=== PATIENT | male | born 1970 | race Caucasian/White ===

== ENCOUNTER 2022-09-26 10:52 | Inpatient (IN) | payer MEDICAID, SELFPAY ==
[2022-09-26 10:53] VITALS: BP 157/108; PULSE 106; RESP 16; TEMP 36.6; O2SAT 93; BMI 33.7
--- NOTE | 2022-09-26 11:34 | EX.ED.SAOD ---
HPI History of Present Illness Chief Complaint: Substance Abuse Detail of Chief Complaint: Alcoholism requesting detox. Informant: patient and parent Onset/Context/Timing Onset: - (History of alcohol abuse for years.) Context: Gradual Onset Timing: Continuous Current Severity: Moderate Maximum Severity: Moderate Associated Symptoms Associated Symptoms: Positive for vomiting* Narrative Narrative: [id number] male long-term history of alcohol and drug abuse. Denies any IV drugs. History of hypertension and PTSD. [facility] [place]. He relapsed. He drinks heavily daily. He drank several hours ago. He and his father are here requesting detox. He denies any complaints. Prior similar symptoms: Yes Recent Illness/Hospitalization: Yes PFSH PFS Home Medications bupropion HCl 75 mg tablet 75 mg PO DAILY 09/26/22 [History Last Taken Unknown] enalapril maleate 20 mg tablet 20 mg PO DAILY 09/26/22 [History Last Taken Unknown] prazosin 2 mg capsule 2 mg PO QHS 09/26/22 [History Last Taken Unknown] Allergy/AdvReac Type Severity Reaction Status Date / Time Penicillins Allergy Hives Verified 09/26/22 10:55 prochlorperazine AdvReac Other Verified 09/26/22 10:55 [From Compazine] Social History Smoking Status: Current every day smoker tobacco type: cigarettes ROS ROS ED ROS Narrative Nausea and vomiting. Review of Systems ROS Unobtainable: Denies due to encephalopathy Constitutional Constitutional ED: Denies chills or fever(s) Eyes Eyes: Denies blurry vision ENT ENT ED: Denies ear pain Cardiovascular Cardiovascular: Denies chest pain Respiratory/Chest Respiratory/Chest: Denies cough or dyspnea Gastrointestinal Gastrointestinal: Reports nausea and vomiting; Denies abdominal pain Genitourinary Genitourinary ED: Denies dysuria Musculoskeletal Musculoskeletal: Denies arthralgias Integumentary Denies abscess Neurologic Neurologic: Denies headache(s) Psychiatric Psychiatric: Reports anxiety; Denies depression Endocrine Endocrinology: Denies cold intolerance Hematologic/Lymphatic Hematologic/Lymphatic: Denies easy bleeding Allergic/Immunologic Allergic/Immunologic ED: Denies mouth swelling EXAM Physical Exam Narrative Exam Narrative: 51-year-old male vital signs stable afebrile. Does not look septic or toxic. He may be intoxicated. Father present in the room. H EENT exam unremarkable. Lungs clear. Heart regular rhythm no murmur rate about 105. Chest wall nontender. Abdomen soft nontender. Obese. Moving all 4 extremities. Calves are nontender without edema. Neurologically he is awake. He is alert. He answers questions and follows commands. Const Vital Signs: 09/26/22 10:53 Temperature 97.9 F Temperature Source Temporal Pulse Rate 106 H Respiratory Rate 16 Blood Pressure 157/108 H Blood Pressure Mean 124 Pulse Ox 93 Oxygen Delivery Method Room Air Positive well nourished, well developed and obese; Negative for cachectic, contractures or unkempt General Appearance ED: well developed and NAD; Negative for unkempt, cachectic, contractures or pallor Nutritional Appearance: obese; Negative for cachectic HEENT Reports moist mucous membranes; Denies dry mucous membranes atraumatic; Negative for trauma or tenderness Mouth ED: No dry mucous membranes Mouth: No dry mucous membranes Eyes PERRL and EOMs intact bilaterally General Eye ED: Negative for pale conjunctiva or scleral icterus Neck no lymphadenopathy, supple and no JVD Thyroid: Negative for tender Lymph Lymphatic: no lymphadenopathy noted; Negative for lymphadenopathy Chest Wall inspection of chest normal and palpation of chest normal Resp normal respiratory effort and clear to auscultation bilaterally Effort and Inspection: Negative for retractions Auscultation: Negative for rales, rhonchi or wheezes Cardio regular rhythm, S1 normal heart sound, S2 normal heart sound and no murmurs; Negative for regular rate Rate: tachycardic GI soft to palpation, non-tender, non-distended and no masses Inspection: Negative for abdominal distention Palpation: Negative for tender or guarding Back/Spine no CVA tenderness General Back: Negative for CVA tenderness Cervical Spine: Negative for cervical spine tenderness Thoracic Spine / Upper Back: Negative for thoracic spinal tenderness Lumbar Spine / Lower Back: Negative for lumbar spinal tenderness Coccyx: Negative for swelling Extremity General Extremety ED: Negative for edema or tenderness General Extremity: Negative for edema Neuro oriented x3 Neuro Narrative: Intoxicated. Sensorium / Orientation: alert, oriented to person, oriented to place and oriented to time; Negative for confused Speech: speech normal Motor Exam: strength 5/5 throughout Psych mental status grossly normal and thought process normal Appearance: Negative for unkempt Attitude: No belligerent, No agitated, No aggressive and No hostile Skin General Skin Exam: Negative for jaundice or pallor Lesions: no lesions Rashes: no rashes Trauma: Negative for abrasion or laceration MDM MDM MDM Narrative Medical decision making narrative: 51-year-old male history of alcohol and drug abuse. Requesting detox. Screening labs will be obtained. I will speak to the hospitalist about admission. Repeat exam unchanged at 1 PM. Hospitalist on page for admission. History & Record Review Discussion w/independent historian: Patient and Family Lab Data Attestation: I reviewed the patient's lab results. Lab results narrative: CBC shows a white count 10.7. H&H is 16 and 46. Platelets 222. Chemistries unremarkable gap of 8. BUN of 20 creatinine 0.9. Liver enzymes unremarkable. Glucose 154. Alcohol level was elevated at 280. Labs: Laboratory Results - last 24 hr 09/26/22 09/26/22 11:55 11:55 WBC 10.7 RBC 5.07 Hgb 16.4 Hct 46.3 MCV 91.3 MCH 32.3 H MCHC 35.4 RDW Std Deviation 42.0 RDW Coeff of Renetta 12.8 Plt Count 222 MPV 10.1 Sodium 137 Potassium 3.7 Chloride 104 Carbon Dioxide 25.0 Anion Gap 8 BUN 20 H Creatinine 0.97 Estim Creat Clear Calc 108.89 Est GFR (MDRD) Af Amer 105 Est GFR (MDRD) Non-Af 87 BUN/Creatinine Ratio 20.6 H Glucose 154 H Calcium 8.3 L Total Bilirubin 0.60 AST 31 ALT 38 Alkaline Phosphatase 64 Total Protein 7.1 Albumin 4.0 Globulin 3.1 Albumin/Globulin Ratio 1.3 Discharge Plan Dx/Rx/DC Orders Clinical Impression: Alcohol abuse, Admitted to alcohol detoxification center, History of drug abuse, Alcohol intoxication Disposition Disposition: Acute Care Hospital [facility]
[2022-09-26 12:06] LABS: Hematocrit 46.3 % (40-54); Hemoglobin 16.4 g/dL (13.0-16.5); Mean Corp Hgb Conc 35.4 g/dL (32-36); Mean Corpuscular Hgb 32.3 pg (27.0-32.0); Mean Corpuscular Volume 91.3 fL (80-94); Mean Platelet Vol. 10.1 fl (6.2-12.0); Platelet Count 222 K/mm3 (150-450); RBC Distribution Width CV 12.8 % (11.6-14.6); Red Blood Count 5.07 M/mm3 (4.6-6.2); White Blood Count 10.7 K/mm3 (4.4-11.0)
[2022-09-26 12:22] LABS: ALB/GLOB Ratio 1.3 RATIO (0.9-2.4); AST(SGOT) 31 U/L (15-37); Alanine Aminotransfer ALT/SGPT 38 U/L (16-61); Alkaline Phosphatase 64 U/L (45-117); Anion Gap 8 (5-15); BUN 20 mg/dL (7-18); BUN/Creat Ratio 20.6 RATIO (10-20); Calcium,Total 8.3 mg/dL (8.5-10.1); Chloride 104 mmol/L (98-107); Creatinine, Serum 0.97 mg/dL (0.70-1.30); EST Glomerular Filtration Rate 87 mL/min (>60); Est Glom Filt Rate - Afr Amer 105 mL/min (>60); Estimated Creatinine Clearance 108.89 ml/min; Globulin 3.1 g/dL (2.2-4.2); Glucose 154 mg/dL (74-106); Potassium 3.7 mmol/L (3.5-5.1); Protein, Total 7.1 g/dL (6.4-8.2); Sodium Level 137 mmol/L (136-145)
--- NOTE | 2022-09-26 13:01 | ED.RN ---
lab called etoh of 284. dr san
[2022-09-26 13:21] VITALS: BP 134/93; PULSE 85; RESP 16; TEMP 36.9; O2SAT 96
--- NOTE | 2022-09-26 13:37 | HP.PCM_ITS ---
HPI - General General Date of Admission: 09/26/22 Date of Service: 09/26/22 Chief Complaint: Alcohol abuse, intoxication and early withdrawal HPI Narrative JANETH COOPER, is a 51 M with a history of hypertension and alcohol abuse. Several months ago underwent detox and then inpatient rehab center in [place]. States that as soon as he got out he went right back to drinking. Drinks about half a gallon of hard liquor every day. States that he does have a tendency to go into alcohol withdrawal early. Currently feeling unwell and restless. Denies any chest pain or shortness of breath. Denies any abdominal pain nausea vomiting at this time. [facility] Home Medications bupropion HCl 75 mg tablet 75 mg PO DAILY 09/26/22 [History Last Taken Unknown] enalapril maleate 20 mg tablet 20 mg PO DAILY 09/26/22 [History Last Taken Unknown] prazosin 2 mg capsule 2 mg PO QHS 09/26/22 [History Last Taken Unknown] Allergy/AdvReac Type Severity Reaction Status Date / Time Penicillins Allergy Hives Verified 09/26/22 10:55 prochlorperazine AdvReac Other Verified 09/26/22 10:55 [From Compazine] Social History Smoking Status: Current every day smoker tobacco type: cigarettes ROS ROS Narrative Denies any chest pain or shortness of breath. Denies nausea vomiting. All other systems reviewed and essentially negative as above in the body of the h istory. Vital Signs Vital Signs Vital Signs: 09/26/22 10:53 09/26/22 13:21 Temperature 36.6 C 36.9 C Temperature Source Temporal Temporal Pulse Rate 106 H 85 Respiratory Rate 16 16 Blood Pressure 157/108 H 134/93 H Blood Pressure Mean 124 106 Pulse Ox 93 96 Oxygen Delivery Method Room Air Room Air Weight Weight: 122.47 kg Body Mass Index (BMI) 33.7 Physical Exam Narrative General exam. Middle-aged man, obese, ill-appearing, restless, depressed appearing, anxious appearing. HEENT. Oral mucosa slightly dry, no jaundice or pallor. Neck. Neck is supple. Skin. Patient appears flushed and hyperemic. Lungs. Nonlabored breathing. Lung becerril are clear to auscultation. Heart. First and second heart sounds heard. Tachycardic. No murmurs. Abdomen obese. Nontender. No organomegaly. Specifically no hepatomegaly. No palpable masses. Extremities. No pedal edema. 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 Conscious alert and oriented x3. Cranial nerves II to XII grossly intact. Power 5 out of 5 in all extremities. Coordination intact. Speech is fluent. Psychiatric. Depressed appearing and appears to be anxious as well and restless. Results Lab / Micro Data Result Diagrams: 09/26/22 11:55 09/26/22 11:55 Labs: Laboratory Results - last 24 hr 09/26/22 11:55: WBC 10.7, RBC 5.07, Hgb 16.4, Hct 46.3, MCV 91.3, MCH 32.3 H, MCHC 35.4, RDW Std Deviation 42.0, RDW Coeff of Renetta 12.8, Plt Count 222, MPV 10.1 09/26/22 11:55: Sodium 137, Potassium 3.7, Chloride 104, Carbon Dioxide 25.0, Anion Gap 8, BUN 20 H, Creatinine 0.97, Estim Creat Clear Calc 108.89, Est GFR (MDRD) Af Amer 105, Est GFR (MDRD) Non-Af 87, BUN/Creatinine Ratio 20.6 H, Glucose 154 H, Calcium 8.3 L, Total Bilirubin 0.60, AST 31, ALT 38, Alkaline Phosphatase 64, Total Protein 7.1, Albumin 4.0, Globulin 3.1, Albumin/Globulin Ratio 1.3 09/26/22 11:55: Ethyl Alcohol 284.0 Assessment & Plan Assessment/Plan (1) Alcohol abuse: (2) Alcohol intoxication: (3) Alcohol withdrawal: PLAN: Plan Assessment and plan 1. Alcohol abuse with intoxication and now early alcohol withdrawal. Patient will need to be admitted for early detoxification and treatment of alcohol withdrawal symptoms. Will place patient on [facility] protocol and on telemetry. IV lorazepam every 2 hours as needed per [facility] protocol. We will keep on Librium 50 mg every 6 hours given high risk of severe withdrawal symptoms. Clonidine 0.1 mg twice a day to kong sympathetic overactivity. IV thiamine and folic acid. Consult case management/social media assistant to facilitate connection and referral to community/outpatient treatment centers. 2. Hypertension. Hold lisinopril as patient will be on clonidine. May resume and discontinue clonidine after withdrawal is resolved. Charges/Coding Visit Charges Inpatient E&M: 44916 Init Hosp L2
[2022-09-26 14:23] VITALS: BMI 33.1
[2022-09-26] MEDS: buPROPion 75 MG Tablet PO (14:31)
[2022-09-26] MEDS: cloNIDine HCl 0.1 MG Tablet PO ×2 (14:31→21:54)
[2022-09-26] MEDS: chlordiazePOXIDE 25 MG Capsule 50 MG PO ×3 (14:31→23:52)
[2022-09-26] MEDS: 0.9% Saline Lock 10 ML Syringe IV (14:31)
[2022-09-26 15:00] VITALS: BP 156/102; PULSE 78; RESP 19; TEMP 36.7; O2SAT 98
[2022-09-26] MEDS: Dicyclomine 10 MG Capsule 20 MG PO ×2 (15:20→21:53)
[2022-09-26] MEDS: hydrOXYzine PAM 25 MG Capsule 50 MG PO ×2 (15:20→21:53)
--- NOTE | 2022-09-26 16:02 | NURSING ---
patient very tearful and withdrawn, talkative regarding how he screwed up and has limited support. This RN provided emotional support.
[2022-09-26 19:43] VITALS: BP 114/65; PULSE 91; RESP 18; TEMP 37; O2SAT 95
[2022-09-26] MEDS: Acetaminophen 325 MG Tablet 650 MG PO (19:54)
[2022-09-26 21:48] VITALS: BP 117/74; PULSE 74; RESP 18; TEMP 36.4; O2SAT 97
[2022-09-26] MEDS: Doxazosin 1 MG Tablet 1.5 MG PO (21:54)
[2022-09-26] MEDS: Ondansetron 4 MG/2 ML Vial IV (21:59)
[2022-09-26 23:49] VITALS: BP 113/77; PULSE 77; RESP 18; TEMP 36.6; O2SAT 94
[2022-09-27] VITALS (7 sets, daily range): BP systolic 131–151; BP diastolic 85–104; PULSE 66–89; RESP 16–18; TEMP 36.4–37.1; O2SAT 95–98
[2022-09-27 05:11] LABS: Absolute Neutrophil Count 1.7 X10^3/uL (2.0-7.7); Basophil# 0.02 X10^3/uL; Basophil% 0.5 % (0-1); Eosinophil# 0.15 X10^3/uL; Eosinophils% 3.7 % (0-5); Hematocrit 42.4 % (40-54); Hemoglobin 14.5 g/dL (13.0-16.5); Lymphocyte % 46.5 % (19-41); Mean Corp Hgb Conc 34.2 g/dL (32-36); Mean Corpuscular Hgb 31.9 pg (27.0-32.0); Mean Corpuscular Volume 93.4 fL (80-94); Mean Platelet Vol. 10.2 fl (6.2-12.0); Monocyte# 0.31 X10^3/uL; Monocyte% 7.6 % (0-10); NRBC Flagged by Analyzer 0 % (0-5); Neutrophil # 1.69 X10^3/uL (2.7-7.7); Neutrophil % 41.2 % (47-70); Platelet Count 163 K/mm3 (150-450); RBC Distribution Width CV 12.4 % (11.6-14.6); Red Blood Count 4.54 M/mm3 (4.6-6.2); White Blood Count 4.1 K/mm3 (4.4-11.0)
[2022-09-27] MEDS: chlordiazePOXIDE 25 MG Capsule 50 MG PO (05:31)
[2022-09-27 05:53] LABS: ALB/GLOB Ratio 1.3 RATIO (0.9-2.4); AST(SGOT) 28 U/L (15-37); Alanine Aminotransfer ALT/SGPT 37 U/L (16-61); Albumin, Serum 3.4 g/dL (3.2-5.0); Alkaline Phosphatase 51 U/L (45-117); Anion Gap 6 (5-15); BUN 22 mg/dL (7-18); BUN/Creat Ratio 26.8 RATIO (10-20); Calcium,Total 7.8 mg/dL (8.5-10.1); Chloride 105 mmol/L (98-107); Creatinine, Serum 0.82 mg/dL (0.70-1.30); EST Glomerular Filtration Rate 105 mL/min (>60); Est Glom Filt Rate - Afr Amer 127 mL/min (>60); Estimated Creatinine Clearance 128.81 ml/min; Globulin 2.7 g/dL (2.2-4.2); Glucose 109 mg/dL (74-106); Magnesium 2.2 mg/dL (1.6-2.6); Phosphorus 2.9 mg/dL (2.5-4.9); Potassium 3.7 mmol/L (3.5-5.1); Protein, Total 6.1 g/dL (6.4-8.2); Sodium Level 137 mmol/L (136-145)
[2022-09-27] MEDS: Dicyclomine 10 MG Capsule 20 MG PO (08:37)
[2022-09-27] MEDS: cloNIDine HCl 0.1 MG Tablet PO ×2 (08:37→22:30)
[2022-09-27] MEDS: Folic Acid 1 MG Tablet PO (08:37)
[2022-09-27] MEDS: buPROPion 75 MG Tablet PO (08:38)
[2022-09-27] MEDS: Enoxaparin 40 MG/0.4 ML Syringe SC (08:38)
[2022-09-27] MEDS: hydrOXYzine PAM 25 MG Capsule 50 MG PO ×3 (09:12→22:30)
--- NOTE | 2022-09-27 11:15 | PN.HOSP_ITS ---
Subjective Subjective Doing well, no issues overnight. CIWA score of 1 Objective Data Objective Data Vital Signs: Vital Signs Temp Pulse Resp BP Pulse Ox O2 Del Method 98.2 F 89 18 148/85 H 95 Room Air 09/27/22 09:11 09/27/22 09:11 09/27/22 09:11 09/27/22 09:11 09/27/22 09:11 09/27/22 09:11 Oxygen Delivery Method Room Air Weight: 265 lb 6.985 oz Body Mass Index (BMI) 33.1 Intake & Output: Intake and Output for Last 24 Hours 09/26/22 09/27/22 09/28/22 03:59 03:59 03:59 Intake Total 344 / 344 52 / 52 Balance 344 / 344 52 / 52 Lab / Micro Data Result Diagrams: 09/27/22 04:20 09/27/22 04:20 Labs: Laboratory Results - last 24 hr 09/26/22 11:55: WBC 10.7, RBC 5.07, Hgb 16.4, Hct 46.3, MCV 91.3, MCH 32.3 H, MCHC 35.4, RDW Std Deviation 42.0, RDW Coeff of Renetta 12.8, Plt Count 222, MPV 10.1 09/26/22 11:55: Sodium 137, Potassium 3.7, Chloride 104, Carbon Dioxide 25.0, Anion Gap 8, BUN 20 H, Creatinine 0.97, Estim Creat Clear Calc 108.89, Est GFR (MDRD) Af Amer 105, Est GFR (MDRD) Non-Af 87, BUN/Creatinine Ratio 20.6 H, Glucose 154 H, Calcium 8.3 L, Total Bilirubin 0.60, AST 31, ALT 38, Alkaline P hosphatase 64, Total Protein 7.1, Albumin 4.0, Globulin 3.1, Albumin/Globulin Ratio 1.3 09/26/22 11:55: Ethyl Alcohol 284.0 09/27/22 04:20: WBC 4.1 L, RBC 4.54 L, Hgb 14.5, Hct 42.4, MCV 93.4, MCH 31.9, MCHC 34.2, RDW Std Deviation 43.0, RDW Coeff of Renetta 12.4, Plt Count 163, MPV 10.2, Immature Gran % (Auto) 0.500, Neut % (Auto) 41.2 L, Lymph % (Auto) 46.5 H, Snyder % (Auto) 7.6, Eos % (Auto) 3.7, Baso % (Auto) 0.5, Absolute Neuts (auto) 1.7 L, Absolute Lymphs (auto) 1.90, Nucleated RBC % 0 09/27/22 04:20: Sodium 137, Potassium 3.7, Chloride 105, Carbon Dioxide 26.0, Anion Gap 6, BUN 22 H, Creatinine 0.82, Estim Creat Clear Calc 128.81, Est GFR (MDRD) Af Amer 127, Est GFR (MDRD) Non-Af 105, BUN/Creatinine Ratio 26.8 H, Glucose 109 H, Calcium 7.8 L, Phosphorus 2.9, Magnesium 2.2, Total Bilirubin 0.80, AST 28, ALT 37, Alkaline Phosphatase 51, Total Protein 6.1 L, Albumin 3.4, Globulin 2.7, Albumin/Globulin Ratio 1.3 Physical Exam Narrative General: Alert, Oriented x3, Cooperative, No apparent distress HEENT: Atraumatic, PERRLA, EOMI, Normocephalic Oral: Moist Mucosa Neck: Supple, No JVD Lungs: Clear to auscultation, Normal air movement, No rhonchi, No wheeze, No rales Cardiovascular: Regular rate, Regular Rhythm, Normal S1, Normal S2, No murmurs Abdomen: Soft, Non Tender, Non-Distended, No Hepato-splenomegaly Extremities: No edema, Capillary Refill Less than 3 Seconds Skin: No rashes, No breakdown Musculoskeletal: No Tenderness to Palpation of Joints or Extremities Neurological: Cranial nerves II-XII grossly intact, Motor Exam 5/5 strength throughout, Sensory exam intact to light touch and pain Psych/Mental Status: Normal Affect, Appropriate Assessment & Plan Assessment/Plan (1) Alcohol abuse: (2) Alcohol intoxication: (3) Alcohol withdrawal: PLAN: Plan 1. Alcohol abuse with intoxication and now early alcohol withdrawal/PTSD ?Continue with the alcohol withdrawal protocol ? We will have him follow-up with [facility] to set up outpatient rehab versus inpatient ? He has gone through detox at other places. Most recently he was at an inpatient rehab and within a week of being discharged she started drinking again ? We will continue with his home Wellbutrin, he states that he has a psychiatrist and a therapist 2. Hypertension ? Blood pressures are stable ? Continue with lisinopril DVT: Lovenox Charges/Coding Visit Charges Inpatient E&M: 28558 Subs Hosp L2
[2022-09-27] MEDS: Phenobarbital 32.4 MG Tablet 64.8 MG PO ×4 (11:57→22:30)
[2022-09-27] MEDS: Doxazosin 1 MG Tablet 1.5 MG PO (22:29)
[2022-09-27] MEDS: traZODone 100 MG Tablet PO (22:30)
[2022-09-28 03:53] VITALS: BP 131/99; PULSE 55; RESP 18; TEMP 36.4; O2SAT 96
[2022-09-28] MEDS: Phenobarbital 32.4 MG Tablet 64.8 MG PO ×6 (03:54→22:32)
[2022-09-28 09:16] VITALS: BP 133/87; PULSE 80; RESP 18; TEMP 36.6
[2022-09-28] MEDS: Lisinopril 20 MG Tablet PO (09:22)
[2022-09-28] MEDS: Enoxaparin 40 MG/0.4 ML Syringe SC (09:22)
[2022-09-28] MEDS: Acetaminophen 325 MG Tablet 650 MG PO (09:22)
[2022-09-28] MEDS: cloNIDine HCl 0.1 MG Tablet PO ×2 (09:23→22:33)
[2022-09-28] MEDS: buPROPion 75 MG Tablet PO (09:23)
[2022-09-28] MEDS: Folic Acid 1 MG Tablet PO (09:23)
[2022-09-28] MEDS: Gabapentin 300 MG Capsule PO ×2 (09:23→18:47)
[2022-09-28] MEDS: Thiamine Hydrochloride 100 MG Tablet PO (09:23)
[2022-09-28] MEDS: hydrOXYzine PAM 25 MG Capsule 50 MG PO ×2 (11:15→15:39)
--- NOTE | 2022-09-28 11:22 | PN.HOSP_ITS ---
Subjective Subjective Doing well, endorses some anxiety, CIWA score of 9 Objective Data Objective Data Vital Signs: Vital Signs Temp Pulse Resp BP Pulse Ox O2 Del Method 97.9 F 80 18 133/87 H 96 Room Air 09/28/22 09:16 09/28/22 09:16 09/28/22 09:16 09/28/22 09:16 09/28/22 03:53 09/28/22 09:16 Oxygen Delivery Method Room Air Weight: 265 lb 6.985 oz Body Mass Index (BMI) 33.1 Intake & Output: Intake and Output for Last 24 Hours 09/27/22 09/28/22 09/29/22 03:59 03:59 03:59 Intake Total 344 / 344 1202 / 1202 Balance 344 / 344 1202 / 1202 Lab / Micro Data Result Diagrams: 09/27/22 04:20 09/27/22 04:20 Physical Exam Narrative General: Alert, Oriented x3, Cooperative, No apparent distress HEENT: Atraumatic, PERRLA, EOMI, Normocephalic Oral: Moist Mucosa Neck: Supple, No JVD Lungs: Clear to auscultation, Normal air movement, No rhonchi, No wheeze, No rales Cardiovascular: Regular rate, Regular Rhythm, Normal S1, Normal S2, No murmurs Abdomen: Soft, Non Tender, Non-Distended, No Hepato-splenomegaly Extremities: No edema, Capillary Refill Less than 3 Seconds Skin: No rashes, No breakdown Musculoskeletal: No Tenderness to Palpation of Joints or Extremities Neurological: Cranial nerves II-XII grossly intact, Motor Exam 5/5 strength t hroughout, Sensory exam intact to light touch and pain Psych/Mental Status: Normal Affect, Appropriate Assessment & Plan Assessment/Plan (1) Alcohol abuse: (2) Alcohol intoxication: (3) Alcohol withdrawal: PLAN: Plan 1. Alcohol abuse with intoxication and now early alcohol withdrawal/PTSD ?Continue with the alcohol withdrawal protocol ? We will have him follow-up with [facility] to set up outpatient rehab versus inpatient ? He has gone through detox at other places. Most recently he was at an in patient rehab and within a week of being discharged she started drinking again ? We will continue with his home Wellbutrin, he states that he has a psychiatrist and a therapist 2. Hypertension ? Blood pressures are stable ? Continue with lisinopril DVT: Lovenox Charges/Coding Visit Charges Inpatient E&M: 75953 Subs Hosp L2
[2022-09-28 15:41] VITALS: BP 111/80; PULSE 66; RESP 18; TEMP 36.5; O2SAT 95
[2022-09-28 18:46] VITALS: BP 115/73; PULSE 77; RESP 18; TEMP 37.1; O2SAT 97
[2022-09-28 22:30] VITALS: BP 129/82; PULSE 74; RESP 16; TEMP 36.6; O2SAT 97
[2022-09-28] MEDS: Doxazosin 1 MG Tablet 1.5 MG PO (22:32)
[2022-09-28] MEDS: traZODone 100 MG Tablet PO (22:32)
[2022-09-29] MEDS: Phenobarbital 32.4 MG Tablet 64.8 MG PO ×3 (03:15→12:01)
[2022-09-29 03:17] VITALS: BP 112/78; PULSE 58; RESP 16; TEMP 36.6; O2SAT 100
[2022-09-29] MEDS: Thiamine Hydrochloride 100 MG Tablet PO (08:41)
[2022-09-29] MEDS: Folic Acid 1 MG Tablet PO (08:41)
--- NOTE | 2022-09-29 09:16 | DCINST_ITS ---
Discharge Instructions Diet Discharge Diet: No restrictions Activity Discharge Activity: Return to Normal Activity Dressing / Incision Call your doctor if you observe: Fever of 101 or Higher, Shortness of breath, Dizziness, Fainting spells, Swelling in the ankles, Chest pain and Increased palpitations (irregular heartbeat) Follow Up Care Test Results: Test results from this visit will be discussed in further detail at your follow- up appointment, if applicable. Discharge Plan Admission Admit Date/Time: 09/26/22 13:27 Attending Provider: Boni Rader Primary Care Provider: Yadira Louie CNP Consulting Providers: Anjana Noble Discharge Orders/Prescriptions Prescriptions: Continued enalapril maleate 20 mg tablet 20 mg PO DAILY Label Comments: take 1 tablet by mouth once daily bupropion HCl 75 mg tablet 75 mg PO DAILY Label Comments: take 1 tablet by mouth twice a day prazosin 2 mg capsule 2 mg PO QHS Label Comments: take 2 capsules by mouth DAILY IN THE EVENING, PSYCH Referrals / Follow Up: Yadira Louie CNP [Other] Yadira Louie CNP [Other] Disposition Disposition (needs filled in before D/C Order can be placed): Home, Self Care
[2022-09-29 09:17] VITALS: BP 119/76; PULSE 84; RESP 18; TEMP 36.6; O2SAT 95
--- NOTE | 2022-09-29 09:20 | DS.PCM_ITS ---
Providers Date of Admission: 09/26/22 Primary Care Physician: Yadira Louie Reason For Visit: DETOX ALCOHOL AND DRUG ABUSE Diagnosis Discharge Diagnosis (1) Alcohol abuse: Status: Acute Code(s): F10.10 - Alcohol abuse, uncomplicated (2) Alcohol intoxication: Status: Acute Code(s): F10.929 - Alcohol use, unspecified with intoxication, unspecified (3) Alcohol withdrawal: Status: Acute Code(s): F10.939 - Alcohol use, unspecified with withdrawal, unspecified Medications at Discharge Home Medications bupropion HCl 75 mg tablet 75 mg PO DAILY 09/26/22 enalapril maleate 20 mg tablet 20 mg PO DAILY 09/26/22 prazosin 2 mg capsule 2 mg PO QHS 09/26/22 Hospital Course Operations None Procedures None Summary of Care Provided Minutes Spent on Discharge: 36 Hospital Course: Per HPI: JANETH COOPER, is a 51 M with a history of hypertension and alcohol ab use.? Several months ago underwent detox and then inpatient rehab center in [place].? States that as soon as he got out he went right back to drinking.? Drinks about half a gallon of hard liquor every day.? States that he does have a tendency to go into alcohol withdrawal early.? Currently feeling unwell and restless.? Denies any chest pain or shortness of breath.? Denies any abdominal pain nausea vomiting at this time. Hospital Course: 1. Alcohol abuse with intoxication and early alcohol withdrawal/PTSD? 51-year-old male presents to the hospital requesting detox. Initially he was started on Librium and Ativan and then transition to the alcohol withdrawal protocol with phenobarbital. He states that he met with somebody from [facility] but he could not relay what the plan was and there is no documentation in the chart. He states that he wants to find his own inpatient facility and would like to go home today. He denies any significant withdrawal symptoms at this time, he is tolerating his home Wellbutrin and has his own mental health physician and therapist. I discussed with him the plan for possible discharge today he expressed understanding of the risk benefits going home and wants to go home today. 2. Hypertension, will continue his home blood pressure medications Physical Exam Narrative General: Alert, Oriented x3, Cooperative, No apparent distress HEENT: Atraumatic, PERRLA, EOMI, Normocephalic Oral: Moist Mucosa Neck: Supple, No JVD Lungs: Clear to auscultation, Normal air movement, No rhonchi, No wheeze, No rales Cardiovascular: Regular rate, Regular Rhythm, Normal S1, Normal S2, No murmurs Abdomen: Soft, Non Tender, Non-Distended, No Hepato-splenomegaly Extremities: No edema, Capillary Refill Less than 3 Seconds Skin: No rashes, No breakdown Musculoskeletal: No Tenderness to Palpation of Joints or Extremities Neurological: Cranial nerves II-XII grossly intact, Motor Exam 5/5 strength throughout, Sensory exam intact to light touch and pain Psych/Mental Status: Normal Affect, Appropriate Weight / BMI Weight Weight: 265 lb 6.985 oz Body Mass Index (BMI) 33.1 ABG / Lab / Microbiology Data Result Diagrams: 09/27/22 04:20 09/27/22 04:20 D/C Instructions Discharge Diet: No restrictions Call your doctor if you observe: Fever of 101 or Higher, Shortness of breath, Dizziness, Fainting spells, Swelling in the ankles, Chest pain and Increased palpitations (irregular heartbeat) Meaningful Use Info Meaningful Use Diagnoses (Choose all that apply): None applicable Discharge Plan Admission Admit Date/Time: 09/26/22 13:27 Attending Provider: Boni Rader Primary Care Provider: Yadira Louie CNP Consulting Providers: Anjana Noble Discharge Orders/Prescriptions Prescriptions: Continued enalapril maleate 20 mg tablet 20 mg PO DAILY Label Comments: take 1 tablet by mouth once daily bupropion HCl 75 mg tablet 75 mg PO DAILY Label Comments: take 1 tablet by mouth twice a day prazosin 2 mg capsule 2 mg PO QHS Label Comments: take 2 capsules by mouth DAILY IN THE EVENING, PSYCH Referrals / Follow Up: Yadira Louie CNP [Other] Yadira Louie CNP [Other] Disposition Disposition (needs filled in before D/C Order can be placed): Home, Self Care Charges/Coding Visit Charges Inpatient E&M: 28352 Disch Hosp >30min
[2022-09-29] MEDS: cloNIDine HCl 0.1 MG Tablet PO (09:48)
[2022-09-29] MEDS: Lisinopril 20 MG Tablet PO (09:49)
[2022-09-29] MEDS: buPROPion 75 MG Tablet PO (09:49)
[2022-09-29 09:55] VITALS: PULSE 84; RESP 18; O2SAT 95
[2022-09-29 10:00] VITALS: BP 119/76; PULSE 84; RESP 18; TEMP 36.6; O2SAT 95
[2022-09-29 13:37] VITALS: BP 143/82; PULSE 83; RESP 18; TEMP 36.6; O2SAT 98
== END 2022-09-29 14:45 | disposition home or self-care (01) | DRG 775 ==
LOC: ED 11:40 → PCU 15:23
PROVIDERS: Admitting Provider Internal Medicine; Emergency Provider Emergency Medicine; Visit Provider Family Medicine
DX: F10.239 Alcohol dependence with withdrawal, unspecified (principal); F17.210 Nicotine dependence, cigarettes, uncomplicated; I10 Essential (primary) hypertension; F43.10 Post-traumatic stress disorder, unspecified; Y90.8 Blood alcohol level of 240 mg/100 ml or more
CPT/HCPCS: 36415; 80053; 82077; 83735; 84100; 85025; 85027; 99284; A4216; J2405; J3490